=== PATIENT | female | born 1945 | race African-American/Black ===

== ENCOUNTER 2023-03-25 17:57 | Inpatient (IN) | payer OTHER ==
[2023-03-25 18:37] VITALS: BMI 22.5
[2023-03-25 19:20] LABS: VENOUS BASE EXCESS 8.6 mmol/L (-2-2); VENOUS O2 SATURATION 65.2 % (70-80); VENOUS PCO2 41.5 mmHg (38-52); VENOUS PH 7.51 (7.310-7.410)
[2023-03-25 19:22] LABS: BASO % 0.4 % (0-2.0); EOS % 0.6 % (0-4.5); HEMATOCRIT 17.9 % (32.4-45.2); LYMPH % 10.8 % (8-40); MCHC 31.3 g/dl (32.0-36.0); MEAN CELL VOLUME 79.8 fl (80-96); MEAN PLT VOLUME 8.4 fl (7.5-11.1); MONO % 6.5 % (3.8-10.2); NEUT % 81.7 % (42.8-82.8); PLATELET COUNT 344 10^3/uL (134-434); RBC 2.24 M/mm3 (3.60-5.2); RDW 18.5 % (11.6-15.6); WHITE BLOOD COUNT 17.9 K/mm3 (4.0-10.0)
[2023-03-25 19:32] LABS: INR 1.32 (0.83-1.09); PROTHROMBIN TIME (PATIENT) 15.3 SEC (9.7-13.0)
[2023-03-25 19:34] LABS: ACTIVATED PTT 28.7 SECONDS (25.2-36.5)
[2023-03-25 19:36] LABS: HEMOGLOBIN 5.6 GM/dL (10.7-15.3)
[2023-03-25 19:51] LABS: POTASSIUM 4.7 mmol/L (3.5-5.1)
[2023-03-25 19:53] LABS: CALCIUM 9.6 mg/dL (8.5-10.1); LACTIC ACID 2.5 mmol/L (0.4-2.0)
[2023-03-25 19:54] LABS: ALBUMIN 1.4 g/dl (3.4-5.0); BLOOD UREA NITROGEN 72.3 mg/dL (7-18)
[2023-03-25 19:57] LABS: CREATININE 1.1 mg/dL (0.55-1.3)
[2023-03-25 19:58] LABS: TOT PROT 7.2 g/dl (6.4-8.2)
[2023-03-25 19:59] LABS: BILIRUBIN,TOTAL 0.3 mg/dL (0.2-1)
[2023-03-25 20:48] LABS: EPI CELLS >36 /uL (0-25.1); HYALINE CASTS 0 /uL (0-3.1); PH,URINE 7.5 (5.0-8.0); URINE APPEARANCE CLEAR; URINE BACTERIA 4 /uL (0-1359); URINE BILIRUBIN NEGATIVE (NEGATIVE); URINE COLOR YELLOW; URINE GLUCOSE (UA) NEGATIVE (NEGATIVE); URINE KETONE NEGATIVE (NEGATIVE); URINE LEUK ESTERASE NEGATIVE (NEGATIVE); URINE NITRITE NEGATIVE (NEGATIVE); URINE PROTEIN 1+ (NEGATIVE); URINE RBC 23 /uL (0-23.9); URINE WBC 10 /uL (0-25.8)
[2023-03-25] MEDS ORDERED: PIPERACILLIN/TAZOB 3.375 GM 3.375 GM in DEXTROSE 5%-WATER - 50 ML IVPB ONE (21:03)
[2023-03-25] MEDS ORDERED: PIPERACILLIN/TAZOB 3.375 GM 3.375 GM/50 ML BAG IVPB ONE (21:15)
[2023-03-25] MEDS ORDERED: PANTOPRAZOLE SODIUM 40 MG VIAL IVPUSH ONE (21:46)
[2023-03-25] MEDS ORDERED: PANTOPRAZOLE SODIUM 40 MG/100 ML BAG IVPB ONE (21:49)
[2023-03-25 22:07] LABS: YEAST FEW (NEGATIVE)
[2023-03-25] MEDS ORDERED: VANCOMYCIN 1 GM in D5W (PRE-DOCKED) 1,000 MG/250 ML (RESTRICTED TO ID ONLY IVPB ONE (22:21)
[2023-03-25] MEDS ORDERED: VANCOMYCIN 1 GM/200 ML PREMIX BAG (RESTRICTED TO ID ONLY) IVPB ONE (22:21)
[2023-03-25] MEDS ORDERED: VANCOMYCIN/WATER FOR INJ (PEG) 1,000 MG/200 ML BAG IVPB ONE (22:27)
[2023-03-26] MEDS ORDERED: ACETAMINOPHEN 1000 MG/100 ML BAG IVPB PRN (00:19)
[2023-03-26 02:16] LABS: RETICULOCYTES 1.69 % (0.5-1.5)
[2023-03-26] MEDS ORDERED: CARBIDOPA/LEVODOPA 25/100 TABLET (FP) ONE ×2 (06:08→12:53)
[2023-03-26] MEDS ORDERED: LEVOTHYROXINE NA 75 MCG TABLET (FP) ONE (06:08)
[2023-03-26] MEDS ORDERED: LEVOTHYROXINE NA 50 MCG TABLET (FP) ONE (06:09)
[2023-03-26] MEDS: CARBIDOPA/LEVODOPA 25/100 TABLET (FP) GT SCH ×3 (06:14→21:28)
[2023-03-26] MEDS: LEVOTHYROXINE 100 MCG, LEVOTHYROXINE 75 MCG GT SCH (06:14)
[2023-03-26] MEDS ORDERED: PATIENT'S OWN MEDICATION (NON-FORMULARY) (Levothyroxine Sodium [Levothyroxine] 175 MCG Cap GT SCH (06:30)
[2023-03-26] MEDS ORDERED: INSULIN (NOVOLOG) ASPART 100 UNITS/ML 10ML VIAL SQ SCH (07:00)
[2023-03-26] MEDS: SODIUM CHLORIDE 1,000 ML IV SCH (07:40)
[2023-03-26] MEDS: ZINC OXIDE 20% TOPICAL OINTMENT 30 GM TUBE TP SCH ×3 (07:42→22:01)
[2023-03-26 07:48] LABS: HEMATOCRIT 24.1 % (32.4-45.2); HEMOGLOBIN 8.4 GM/dL (10.7-15.3); MCH 27.8 pg (25.7-33.7); MCHC 34.7 g/dl (32.0-36.0); MEAN CELL VOLUME 80.2 fl (80-96); MEAN PLT VOLUME 8.5 fl (7.5-11.1); PLATELET COUNT 300 10^3/uL (134-434); RBC 3.01 M/mm3 (3.60-5.2); RDW 16.9 % (11.6-15.6); WHITE BLOOD COUNT 16.3 K/mm3 (4.0-10.0)
[2023-03-26] MEDS: INSULIN SLIDING SCALE (NOVOLOG) 1 VIAL SQ SCH ×3 (07:48→17:29)
[2023-03-26 08:08] LABS: POTASSIUM 3.9 mmol/L (3.5-5.1)
[2023-03-26 08:10] LABS: ALBUMIN 1.4 g/dl (3.4-5.0); CALCIUM 9.1 mg/dL (8.5-10.1)
[2023-03-26 08:11] LABS: BLOOD UREA NITROGEN 64.6 mg/dL (7-18); MAGNESIUM 1.9 mg/dL (1.8-2.4)
[2023-03-26 08:13] LABS: PHOSPHOROUS 1.4 mg/dL (2.5-4.9)
[2023-03-26 08:15] LABS: BILIRUBIN,TOTAL 0.7 mg/dL (0.2-1); TOT PROT 6.4 g/dl (6.4-8.2)
[2023-03-26] MEDS ORDERED: VANCOMYCIN/WATER FOR INJ (PEG) 1,000 MG/200 ML BAG IVPB ONE ×2 (09:11→22:00)
[2023-03-26] MEDS ORDERED: METOPROLOL TARTRATE 25 MG TABLET (FP) ONE (09:11)
[2023-03-26] MEDS ORDERED: FOLIC ACID 1 MG TABLET (FP) ONE (09:11)
[2023-03-26] MEDS ORDERED: ZINC SULFATE 220 MG CAPSULE (FP) ONE (09:11)
[2023-03-26] MEDS ORDERED: PIPERACILLIN/TAZOB 4.5 GM 4.5 GM/100 ML BAG IVPB ONE (09:11)
[2023-03-26] MEDS ORDERED: PANTOPRAZOLE SODIUM 40 MG VIAL ONE (09:12)
[2023-03-26] MEDS: PANTOPRAZOLE SODIUM 40 MG VIAL IVPUSH SCH ×2 (09:25→21:28)
[2023-03-26] MEDS: PIPERACILLIN/TAZOB 4.5 GM 4.5 GM in DEXTROSE 5%-WATER 100 ML IVPB SCH ×3 (09:25→21:27)
[2023-03-26] MEDS: ZINC SULFATE 220 MG CAPSULE (FP) GT SCH (09:25)
[2023-03-26] MEDS: METOPROLOL TARTRATE 25 MG TABLET (FP) GT SCH (09:25)
[2023-03-26] MEDS: FOLIC ACID 1 MG TABLET (FP) GT SCH (09:25)
[2023-03-26] MEDS ORDERED: VANCOMYCIN 750 MG in DEXTROSE 5%-WATER - 150 ML IVPB SCH (10:00)
[2023-03-26] MEDS: COLLAGENASE CLOSTRIDIUM HIST. 30 GRAMS TUBE TP SCH (10:13)
[2023-03-26] MEDS ORDERED: SODIUM PHOSPHATE - 30 MM in SODIUM CHLORIDE 500 ML IVPB ONE (11:00)
[2023-03-26] MEDS ORDERED: NAPH,MB-DB/K PH,MBDB POWDER PACKET GT ONE (12:55)
[2023-03-26] MEDS ORDERED: MAGNESIUM SULF 50% (8.12 MEQ/2 ML-1 GM VIAL) IVPB ONE (12:56)
[2023-03-26] MEDS ORDERED: MAGNESIUM 1GM/D5W - 1 GM/100 ML IVPB IVPB ONE (13:01)
[2023-03-26 17:13] LABS: HEMATOCRIT 25.6 % (32.4-45.2); HEMOGLOBIN 8.5 GM/dL (10.7-15.3); MCH 26.7 pg (25.7-33.7); MCHC 33.1 g/dl (32.0-36.0); MEAN CELL VOLUME 80.8 fl (80-96); MEAN PLT VOLUME 7.9 fl (7.5-11.1); PLATELET COUNT 338 10^3/uL (134-434); RBC 3.17 M/mm3 (3.60-5.2); RDW 17.2 % (11.6-15.6); WHITE BLOOD COUNT 14.4 K/mm3 (4.0-10.0)
[2023-03-26 17:35] LABS: POTASSIUM 3.6 mmol/L (3.5-5.1)
[2023-03-26 17:36] LABS: CALCIUM 8.8 mg/dL (8.5-10.1); MAGNESIUM 2.2 mg/dL (1.8-2.4)
[2023-03-26 17:40] LABS: CREATININE 0.9 mg/dL (0.55-1.3); PHOSPHOROUS 3.6 mg/dL (2.5-4.9)
[2023-03-26] MEDS: KCL 10 MEQ IVPB 10 MEQ/100 ML INFUS.BAG IVPB SCH ×3 (18:58→22:43)
[2023-03-26] MEDS: ATORVASTATIN CA 80 MG TABLET (FP) GT SCH (21:28)
[2023-03-26] MEDS ORDERED: VANCOMYCIN 1 GM in D5W (PRE-DOCKED) 1,000 MG/250 ML (RESTRICTED TO ID ONLY IVPB SCH (22:00)
[2023-03-26] MEDS: OLANZapine 5 MG TABLET GT SCH (22:01)
[2023-03-27] MEDS: PIPERACILLIN/TAZOB 4.5 GM 4.5 GM in DEXTROSE 5%-WATER 100 ML IVPB SCH ×4 (04:02→21:24)
[2023-03-27] MEDS: VANCOMYCIN/WATER FOR INJ (PEG) 1,000 MG/200 ML BAG IVPB SCH (06:05)
[2023-03-27] MEDS: LEVOTHYROXINE 100 MCG, LEVOTHYROXINE 75 MCG GT SCH (06:05)
[2023-03-27] MEDS: CARBIDOPA/LEVODOPA 25/100 TABLET (FP) GT SCH ×3 (06:06→21:24)
[2023-03-27] MEDS: ZINC OXIDE 20% TOPICAL OINTMENT 30 GM TUBE TP SCH ×3 (06:17→21:24)
[2023-03-27] MEDS: INSULIN SLIDING SCALE (NOVOLOG) 1 VIAL SQ SCH ×3 (06:17→17:07)
[2023-03-27 07:04] LABS: HEMATOCRIT 24.3 % (32.4-45.2); HEMOGLOBIN 8.4 GM/dL (10.7-15.3); MCH 27.9 pg (25.7-33.7); MCHC 34.4 g/dl (32.0-36.0); MEAN CELL VOLUME 81.2 fl (80-96); MEAN PLT VOLUME 8.5 fl (7.5-11.1); PLATELET COUNT 326 10^3/uL (134-434); RDW 17.3 % (11.6-15.6); WHITE BLOOD COUNT 11.2 K/mm3 (4.0-10.0)
[2023-03-27 07:16] LABS: POTASSIUM 3.9 mmol/L (3.5-5.1)
[2023-03-27 07:21] LABS: ALBUMIN 1.3 g/dl (3.4-5.0); CALCIUM 7.9 mg/dL (8.5-10.1)
[2023-03-27 07:24] LABS: CREATININE 0.8 mg/dL (0.55-1.3); PHOSPHOROUS 3.2 mg/dL (2.5-4.9)
[2023-03-27 07:25] LABS: TOT PROT 6.1 g/dl (6.4-8.2)
[2023-03-27 07:26] LABS: BILIRUBIN,TOTAL 0.5 mg/dL (0.2-1)
[2023-03-27] MEDS: PANTOPRAZOLE SODIUM 40 MG VIAL IVPUSH SCH ×2 (09:29→21:23)
[2023-03-27] MEDS: FOLIC ACID 1 MG TABLET (FP) GT SCH (09:31)
[2023-03-27] MEDS: METOPROLOL TARTRATE 25 MG TABLET (FP) GT SCH (09:31)
[2023-03-27] MEDS: ZINC SULFATE 220 MG CAPSULE (FP) GT SCH (09:31)
[2023-03-27] MEDS: AMINO ACIDS/PROTEIN HYDROLYS 30 ML LIQUID.PKT PO SCH (09:34)
[2023-03-27] MEDS: SODIUM CHLORIDE 1,000 ML IV SCH ×2 (09:47→15:43)
[2023-03-27] MEDS ORDERED: VANCOMYCIN 1 GM in D5W (PRE-DOCKED) 1,000 MG/250 ML (RESTRICTED TO ID ONLY IVPB SCH (10:00)
[2023-03-27] MEDS: COLLAGENASE CLOSTRIDIUM HIST. 30 GRAMS TUBE TP SCH (10:45)
[2023-03-27] MEDS: OLANZapine 5 MG TABLET GT SCH (21:24)
[2023-03-27] MEDS: ATORVASTATIN CA 80 MG TABLET (FP) GT SCH (21:24)
[2023-03-28] MEDS: PIPERACILLIN/TAZOB 4.5 GM 4.5 GM in DEXTROSE 5%-WATER 100 ML IVPB SCH ×4 (02:36→23:34)
[2023-03-28] MEDS: LEVOTHYROXINE 100 MCG, LEVOTHYROXINE 75 MCG GT SCH (05:56)
[2023-03-28] MEDS: VANCOMYCIN/WATER FOR INJ (PEG) 1,000 MG/200 ML BAG IVPB SCH (05:56)
[2023-03-28] MEDS: ZINC OXIDE 20% TOPICAL OINTMENT 30 GM TUBE TP SCH ×3 (05:57→23:35)
[2023-03-28] MEDS: CARBIDOPA/LEVODOPA 25/100 TABLET (FP) GT SCH ×3 (05:57→23:35)
[2023-03-28] MEDS ORDERED: INSULIN (NOVOLOG) ASPART 100 UNITS/ML 10ML VIAL ONE (05:59)
[2023-03-28] MEDS: INSULIN SLIDING SCALE (NOVOLOG) 1 VIAL SQ SCH ×3 (06:00→16:57)
[2023-03-28 07:32] LABS: HEMATOCRIT 27.5 % (32.4-45.2); HEMOGLOBIN 9.4 GM/dL (10.7-15.3); MCH 28.2 pg (25.7-33.7); MCHC 34.2 g/dl (32.0-36.0); MEAN CELL VOLUME 82.6 fl (80-96); MEAN PLT VOLUME 8.6 fl (7.5-11.1); PLATELET COUNT 396 10^3/uL (134-434); RBC 3.33 M/mm3 (3.60-5.2); RDW 17.7 % (11.6-15.6); WHITE BLOOD COUNT 18.7 K/mm3 (4.0-10.0)
[2023-03-28 07:37] LABS: POTASSIUM 4.1 mmol/L (3.5-5.1)
[2023-03-28 07:45] LABS: ALBUMIN 1.5 g/dl (3.4-5.0); BLOOD UREA NITROGEN 31.5 mg/dL (7-18); MAGNESIUM 1.9 mg/dL (1.8-2.4)
[2023-03-28 07:48] LABS: CREATININE 0.9 mg/dL (0.55-1.3); PHOSPHOROUS 2.1 mg/dL (2.5-4.9)
[2023-03-28 07:49] LABS: BILIRUBIN,TOTAL 0.5 mg/dL (0.2-1); TOT PROT 7.1 g/dl (6.4-8.2)
[2023-03-28] MEDS: ZINC SULFATE 220 MG CAPSULE (FP) GT SCH (09:26)
[2023-03-28] MEDS: AMINO ACIDS/PROTEIN HYDROLYS 30 ML LIQUID.PKT PO SCH (09:26)
[2023-03-28] MEDS: FOLIC ACID 1 MG TABLET (FP) GT SCH (09:26)
[2023-03-28] MEDS: PANTOPRAZOLE SODIUM 40 MG VIAL IVPUSH SCH ×2 (09:26→23:34)
[2023-03-28] MEDS: METOPROLOL TARTRATE 25 MG TABLET (FP) GT SCH (09:26)
[2023-03-28] MEDS: COLLAGENASE CLOSTRIDIUM HIST. 30 GRAMS TUBE TP SCH (09:27)
[2023-03-28] MEDS ORDERED: NAPH,MB-DB/K PH,MBDB POWDER PACKET GT ONE (09:43)
[2023-03-28] MEDS ORDERED: SODIUM PHOSPHATE - 30 MM in SODIUM CHLORIDE 250 ML IVPB ONE (10:00)
[2023-03-28] MEDS ORDERED: VANCOMYCIN/WATER FOR INJ (PEG) 1,000 MG/200 ML BAG IVPB ONE (20:28)
[2023-03-28] MEDS: ATORVASTATIN CA 80 MG TABLET (FP) GT SCH (23:35)
[2023-03-28] MEDS: OLANZapine 5 MG TABLET GT SCH (23:35)
[2023-03-29] MEDS: PIPERACILLIN/TAZOB 4.5 GM 4.5 GM in DEXTROSE 5%-WATER 100 ML IVPB SCH ×4 (02:44→22:37)
[2023-03-29] MEDS: CARBIDOPA/LEVODOPA 25/100 TABLET (FP) GT SCH ×3 (05:28→21:13)
[2023-03-29] MEDS: VANCOMYCIN/WATER FOR INJ (PEG) 1,000 MG/200 ML BAG IVPB SCH (05:28)
[2023-03-29] MEDS: LEVOTHYROXINE 100 MCG, LEVOTHYROXINE 75 MCG GT SCH (05:30)
[2023-03-29] MEDS: INSULIN SLIDING SCALE (NOVOLOG) 1 VIAL SQ SCH ×3 (06:12→17:27)
[2023-03-29] MEDS: ZINC OXIDE 20% TOPICAL OINTMENT 30 GM TUBE TP SCH ×3 (06:13→22:38)
[2023-03-29] MEDS: AMINO ACIDS/PROTEIN HYDROLYS 30 ML LIQUID.PKT PO SCH (09:21)
[2023-03-29] MEDS: PANTOPRAZOLE SODIUM 40 MG VIAL IVPUSH SCH ×2 (09:21→21:13)
[2023-03-29] MEDS: METOPROLOL TARTRATE 25 MG TABLET (FP) GT SCH (09:22)
[2023-03-29] MEDS: ZINC SULFATE 220 MG CAPSULE (FP) GT SCH (09:23)
[2023-03-29] MEDS: FOLIC ACID 1 MG TABLET (FP) GT SCH (09:23)
[2023-03-29 10:40] LABS: HEMOGLOBIN 8.5 GM/dL (10.7-15.3); MCH 27.5 pg (25.7-33.7); MCHC 32.6 g/dl (32.0-36.0); MEAN CELL VOLUME 84.4 fl (80-96); MEAN PLT VOLUME 7.7 fl (7.5-11.1); PLATELET COUNT 373 10^3/uL (134-434); RBC 3.08 M/mm3 (3.60-5.2); WHITE BLOOD COUNT 17.6 K/mm3 (4.0-10.0)
[2023-03-29 11:01] LABS: POTASSIUM 4.1 mmol/L (3.5-5.1)
[2023-03-29 11:06] LABS: CALCIUM 8.1 mg/dL (8.5-10.1)
[2023-03-29 11:07] LABS: ALBUMIN 1.4 g/dl (3.4-5.0); BLOOD UREA NITROGEN 24.4 mg/dL (7-18); MAGNESIUM 2.1 mg/dL (1.8-2.4)
[2023-03-29 11:09] LABS: PHOSPHOROUS 2.5 mg/dL (2.5-4.9)
[2023-03-29 11:10] LABS: CREATININE 0.8 mg/dL (0.55-1.3); TOT PROT 6.5 g/dl (6.4-8.2)
[2023-03-29 11:11] LABS: BILIRUBIN,TOTAL 0.3 mg/dL (0.2-1)
[2023-03-29] MEDS: COLLAGENASE CLOSTRIDIUM HIST. 30 GRAMS TUBE TP SCH (12:16)
[2023-03-29] MEDS: OLANZapine 5 MG TABLET GT SCH (21:12)
[2023-03-29] MEDS: ATORVASTATIN CA 80 MG TABLET (FP) GT SCH (21:12)
[2023-03-29] MEDS: ACETAMINOPHEN 650 MG/20.3 ML ORAL SOLUTION (CUPS) PO PRN (21:20)
[2023-03-29] MEDS ORDERED: PIPERACILLIN/TAZOBACTAM 4.5 GM VIAL IVPB ONE (21:38)
[2023-03-30] MEDS: PIPERACILLIN/TAZOB 4.5 GM 4.5 GM in DEXTROSE 5%-WATER 100 ML IVPB SCH ×4 (01:59→22:54)
[2023-03-30] MEDS: ACETAMINOPHEN 650 MG/20.3 ML ORAL SOLUTION (CUPS) PO PRN (04:02)
[2023-03-30] MEDS: ZINC OXIDE 20% TOPICAL OINTMENT 30 GM TUBE TP SCH ×3 (05:45→23:37)
[2023-03-30] MEDS: VANCOMYCIN/WATER FOR INJ (PEG) 1,000 MG/200 ML BAG IVPB SCH (05:45)
[2023-03-30] MEDS: CARBIDOPA/LEVODOPA 25/100 TABLET (FP) GT SCH ×3 (05:45→22:55)
[2023-03-30] MEDS: LEVOTHYROXINE 100 MCG, LEVOTHYROXINE 75 MCG GT SCH (05:47)
[2023-03-30] MEDS: INSULIN SLIDING SCALE (NOVOLOG) 1 VIAL SQ SCH ×3 (06:04→17:49)
[2023-03-30] MEDS: AMINO ACIDS/PROTEIN HYDROLYS 30 ML LIQUID.PKT PO SCH (08:33)
[2023-03-30] MEDS: ZINC SULFATE 220 MG CAPSULE (FP) GT SCH (10:07)
[2023-03-30] MEDS: FOLIC ACID 1 MG TABLET (FP) GT SCH (10:07)
[2023-03-30] MEDS: METOPROLOL TARTRATE 25 MG TABLET (FP) GT SCH (10:08)
[2023-03-30] MEDS: PANTOPRAZOLE SODIUM 40 MG VIAL IVPUSH SCH ×2 (10:09→22:55)
[2023-03-30] MEDS: COLLAGENASE CLOSTRIDIUM HIST. 30 GRAMS TUBE TP SCH (13:37)
[2023-03-30] MEDS: ATORVASTATIN CA 80 MG TABLET (FP) GT SCH (22:55)
[2023-03-30] MEDS: OLANZapine 5 MG TABLET GT SCH (23:37)
[2023-03-31] MEDS: ACETAMINOPHEN 650 MG/20.3 ML ORAL SOLUTION (CUPS) PO PRN (00:01)
[2023-03-31] MEDS: PIPERACILLIN/TAZOB 4.5 GM 4.5 GM in DEXTROSE 5%-WATER 100 ML IVPB SCH ×3 (02:12→15:59)
[2023-03-31] MEDS: VANCOMYCIN/WATER FOR INJ (PEG) 1,000 MG/200 ML BAG IVPB SCH (06:36)
[2023-03-31] MEDS: INSULIN SLIDING SCALE (NOVOLOG) 1 VIAL SQ SCH ×2 (06:37→12:00)
[2023-03-31] MEDS: CARBIDOPA/LEVODOPA 25/100 TABLET (FP) GT SCH ×2 (06:37→14:10)
[2023-03-31] MEDS: LEVOTHYROXINE 100 MCG, LEVOTHYROXINE 75 MCG GT SCH (06:37)
[2023-03-31] MEDS: ZINC OXIDE 20% TOPICAL OINTMENT 30 GM TUBE TP SCH ×2 (06:37→14:12)
[2023-03-31] MEDS ORDERED: LORazepam 2 MG/ML SDV VIAL IVPUSH PRN (09:56)
[2023-03-31] MEDS: AMINO ACIDS/PROTEIN HYDROLYS 30 ML LIQUID.PKT PO SCH (10:12)
[2023-03-31] MEDS: ZINC SULFATE 220 MG CAPSULE (FP) GT SCH (10:13)
[2023-03-31] MEDS: METOPROLOL TARTRATE 25 MG TABLET (FP) GT SCH (10:13)
[2023-03-31] MEDS: FOLIC ACID 1 MG TABLET (FP) GT SCH (10:13)
[2023-03-31] MEDS: PANTOPRAZOLE SODIUM 40 MG VIAL IVPUSH SCH (10:14)
[2023-03-31] MEDS ORDERED: MORPHINE SULFATE/0.9% NACL/PF 100 MG/100 ML BAG IVPB SCH (10:30)
[2023-03-31] MEDS: COLLAGENASE CLOSTRIDIUM HIST. 30 GRAMS TUBE TP SCH (14:24)
[2023-04-01] MEDS: PANTOPRAZOLE SODIUM 40 MG VIAL IVPUSH SCH ×3 (01:06→22:52)
[2023-04-01] MEDS: PIPERACILLIN/TAZOB 4.5 GM 4.5 GM in DEXTROSE 5%-WATER 100 ML IVPB SCH ×2 (01:06→06:38)
[2023-04-01] MEDS: ZINC OXIDE 20% TOPICAL OINTMENT 30 GM TUBE TP SCH ×4 (01:06→22:53)
[2023-04-01] MEDS: CARBIDOPA/LEVODOPA 25/100 TABLET (FP) GT SCH ×4 (06:37→22:52)
[2023-04-01] MEDS: OLANZapine 5 MG TABLET GT SCH ×2 (06:37→22:53)
[2023-04-01] MEDS: ATORVASTATIN CA 80 MG TABLET (FP) GT SCH (06:37)
[2023-04-01] MEDS: LEVOTHYROXINE 100 MCG, LEVOTHYROXINE 75 MCG GT SCH (06:38)
[2023-04-01] MEDS ORDERED: morphine SULFATE 4 MG/ML VIAL IM PRN (10:52)
[2023-04-01] MEDS ORDERED: LORazepam 2 MG/ML SDV VIAL IM PRN (10:53)
[2023-04-01] MEDS ORDERED: morphine SULFATE 4 MG/ML VIAL IM SCH (12:00)
[2023-04-01] MEDS: AMINO ACIDS/PROTEIN HYDROLYS 30 ML LIQUID.PKT PO SCH (12:08)
[2023-04-01] MEDS: ZINC SULFATE 220 MG CAPSULE (FP) GT SCH (12:08)
[2023-04-01] MEDS: FOLIC ACID 1 MG TABLET (FP) GT SCH (12:08)
[2023-04-01] MEDS: METOPROLOL TARTRATE 25 MG TABLET (FP) GT SCH (12:13)
[2023-04-01] MEDS ORDERED: LORazepam 2 MG/ML SDV VIAL IVPUSH PRN (13:43)
[2023-04-01] MEDS: MORPHINE SULFATE/0.9% NACL/PF 100 MG/100 ML BAG IVPB SCH (14:22)
[2023-04-01] MEDS: COLLAGENASE CLOSTRIDIUM HIST. 30 GRAMS TUBE TP SCH (14:58)
[2023-04-02] MEDS: ZINC OXIDE 20% TOPICAL OINTMENT 30 GM TUBE TP SCH ×3 (06:13→22:00)
[2023-04-02] MEDS: CARBIDOPA/LEVODOPA 25/100 TABLET (FP) GT SCH ×3 (06:13→22:00)
[2023-04-02] MEDS: METOPROLOL TARTRATE 25 MG TABLET (FP) GT SCH (10:03)
[2023-04-02] MEDS: PANTOPRAZOLE SODIUM 40 MG VIAL IVPUSH SCH ×2 (10:04→22:00)
[2023-04-02] MEDS: COLLAGENASE CLOSTRIDIUM HIST. 30 GRAMS TUBE TP SCH (10:18)
[2023-04-02] MEDS: OLANZapine 5 MG TABLET GT SCH (22:01)
[2023-04-03] MEDS: CARBIDOPA/LEVODOPA 25/100 TABLET (FP) GT SCH ×3 (05:37→21:57)
[2023-04-03] MEDS: ZINC OXIDE 20% TOPICAL OINTMENT 30 GM TUBE TP SCH ×3 (05:37→21:57)
[2023-04-03] MEDS: MORPHINE SULFATE/0.9% NACL/PF 100 MG/100 ML BAG IVPB SCH ×2 (09:21→13:45)
[2023-04-03] MEDS: PANTOPRAZOLE SODIUM 40 MG VIAL IVPUSH SCH ×2 (10:35→21:57)
[2023-04-03] MEDS: METOPROLOL TARTRATE 25 MG TABLET (FP) GT SCH (10:45)
[2023-04-03] MEDS: COLLAGENASE CLOSTRIDIUM HIST. 30 GRAMS TUBE TP SCH (13:06)
[2023-04-03] MEDS: OLANZapine 5 MG TABLET GT SCH (21:57)
[2023-04-04] MEDS: CARBIDOPA/LEVODOPA 25/100 TABLET (FP) GT SCH ×3 (05:17→21:38)
[2023-04-04] MEDS: ZINC OXIDE 20% TOPICAL OINTMENT 30 GM TUBE TP SCH ×3 (05:18→21:38)
[2023-04-04] MEDS: METOPROLOL TARTRATE 25 MG TABLET (FP) GT SCH (10:36)
[2023-04-04] MEDS: PANTOPRAZOLE SODIUM 40 MG VIAL IVPUSH SCH ×2 (10:36→21:38)
[2023-04-04] MEDS: COLLAGENASE CLOSTRIDIUM HIST. 30 GRAMS TUBE TP SCH (10:36)
[2023-04-04] MEDS: MORPHINE SULFATE/0.9% NACL/PF 100 MG/100 ML BAG IVPB SCH (15:26)
[2023-04-04] MEDS: OLANZapine 5 MG TABLET GT SCH (21:38)
[2023-04-05] MEDS: MORPHINE SULFATE/0.9% NACL/PF 100 MG/100 ML BAG IVPB SCH ×2 (04:42→06:16)
[2023-04-05] MEDS: CARBIDOPA/LEVODOPA 25/100 TABLET (FP) GT SCH ×3 (06:42→22:44)
[2023-04-05] MEDS: ZINC OXIDE 20% TOPICAL OINTMENT 30 GM TUBE TP SCH ×3 (06:42→22:44)
[2023-04-05] MEDS: METOPROLOL TARTRATE 25 MG TABLET (FP) GT SCH (10:17)
[2023-04-05] MEDS: PANTOPRAZOLE SODIUM 40 MG VIAL IVPUSH SCH ×2 (10:17→22:44)
[2023-04-05] MEDS: COLLAGENASE CLOSTRIDIUM HIST. 30 GRAMS TUBE TP SCH (10:18)
[2023-04-05] MEDS: OLANZapine 5 MG TABLET GT SCH (22:43)
[2023-04-06] MEDS: MORPHINE SULFATE/0.9% NACL/PF 100 MG/100 ML BAG IVPB SCH ×2 (06:17→14:16)
[2023-04-06] MEDS: ZINC OXIDE 20% TOPICAL OINTMENT 30 GM TUBE TP SCH ×3 (06:18→21:07)
[2023-04-06] MEDS: CARBIDOPA/LEVODOPA 25/100 TABLET (FP) GT SCH ×3 (06:18→21:07)
[2023-04-06] MEDS: METOPROLOL TARTRATE 25 MG TABLET (FP) GT SCH (11:06)
[2023-04-06] MEDS: PANTOPRAZOLE SODIUM 40 MG VIAL IVPUSH SCH ×2 (11:07→21:07)
[2023-04-06] MEDS: COLLAGENASE CLOSTRIDIUM HIST. 30 GRAMS TUBE TP SCH (14:35)
[2023-04-06] MEDS: OLANZapine 5 MG TABLET GT SCH (21:07)
[2023-04-07] MEDS: CARBIDOPA/LEVODOPA 25/100 TABLET (FP) GT SCH ×2 (05:10→13:45)
[2023-04-07] MEDS: ZINC OXIDE 20% TOPICAL OINTMENT 30 GM TUBE TP SCH ×2 (05:10→13:46)
[2023-04-07] MEDS: METOPROLOL TARTRATE 25 MG TABLET (FP) GT SCH (09:50)
[2023-04-07] MEDS: COLLAGENASE CLOSTRIDIUM HIST. 30 GRAMS TUBE TP SCH (09:50)
[2023-04-07] MEDS: PANTOPRAZOLE SODIUM 40 MG VIAL IVPUSH SCH (09:50)
[2023-04-07 17:01] VITALS: BP 112/54; PULSE 71; RESP 16; TEMP 99.4
== END 2023-04-07 17:11 | disposition hospice, inpatient (51) | DRG 870 ==
LOC: JER 17:57 → JERBED 22:22 → J2W 03-26 15:15 → J5S 03-28 21:05
PROVIDERS: ADMIT Internal Medicine; ATTEND Internal Medicine
PROC: 5A1955Z Respiratory Ventilation, Greater than 96 Consecutive Hours (ICD-10-PCS; principal; 2023-03-25)
DX: A41.9 Sepsis, unspecified organism (principal); L89.154 Pressure ulcer of sacral region, stage 4; J18.9 Pneumonia, unspecified organism; J96.22 Acute and chronic respiratory failure with hypercapnia; J96.21 Acute and chronic respiratory failure with hypoxia; Z99.11 Dependence on respirator [ventilator] status; N17.9 Acute kidney failure, unspecified; E87.20 Acidosis, unspecified; K92.2 Gastrointestinal hemorrhage, unspecified; D64.9 Anemia, unspecified; G20 Parkinson's disease; F02.80 Dementia in other diseases classified elsewhere, unspecified severity, without behavioral disturbance, psychotic disturbance, mood disturbance, and anxiety; Z93.0 Tracheostomy status; I12.9 Hypertensive chronic kidney disease with stage 1 through stage 4 chronic kidney disease, or unspecified chronic kidney disease; E11.22 Type 2 diabetes mellitus with diabetic chronic kidney disease; N18.30 Chronic kidney disease, stage 3 unspecified; E78.5 Hyperlipidemia, unspecified; Z93.1 Gastrostomy status; E03.9 Hypothyroidism, unspecified; F20.9 Schizophrenia, unspecified
CPT/HCPCS: 0241U-QW; 36415; 36430; 71045-TC-FY; 80048; 80053; 81003; 82272; 82728; 82803; 82962; 83540; 83550; 83605; 83615; 83735; 84100; 84484; 85025; 85027; 85045; 85610; 85730; 86850; 86900; 86901; 86922; 87040; 87070; 87077; 87081; 87086; 87186; 87205; 93005; 93010; 94002; 99285-25; C9803-CS; G0480; P9058; U0003; U0005